=== PATIENT | male | born 1945 | race Caucasian/White ===

== ENCOUNTER → 2016-11-21 | Outpatient (CLI) | payer MEDICARE, BC, OTHER ==
[~2016-11-21] MED LIST: ASPI325T6 PO; BUMEX2 MG PO; CEPHALEXIN500 M1 PO; COLACE 100100 MG/CAP PO; COPPER2 MG PO; COUMADIN 1010 MG/TAB PO; COUMADIN4 MG PO; COUMADIN5 MG PO; ERY-TAB250 M1 PO; FISH OIL1000 MG PO; FOLIC ACID 40400 MCG PO; ICAPS LUTEIN &1 TAB PO; ICAPS MV1 TAB PO; INDERAL LA160 MG PO; IRON65 MG PO; KLONOPIN 1MG1 MG PO; LIPITOR 10MG10 MG PO; LYRICA 75MG CAP75 MG PO; MIRALAX PA17 GM/Dose PO; MYSOLINE 5050 MG/TAB PO; NATURAL E400 IU PO; NEURONTIN100 MG/CAP PO; PRADAXA 150MG150 MG PO; PROPRANOLOL ER80 MG PO; REGLAN 10MG10 MG/TAB PO; TOPAMAX 100MG100 M1 PO; TOPAMAX100 MG PO; TOPROL XL 25MG25 MG PO; TYLENOL 325MG325 MG PO; VITAMIN C500 MG PO; XARELTO STARTER20 MG PO; ZINC100 MG PO; [UNRECOGNIZED DRUG - OTHER] PO
== END ==
LOC: COL.RAD 07:36
DX: T85.8 Other specified complications of internal prosthetic devices, implants and grafts, not elsewhere classified (principal); Y83.8 Other surgical procedures as the cause of abnormal reaction of the patient, or of later complication, without mention of misadventure at the time of the procedure; I86.8 Varicose veins of other specified sites

== ENCOUNTER → 2016-12-06 | Outpatient (CLI) | payer MEDICARE, BC, OTHER | LOC: COL.RAD 08:16 | PROVIDERS: Family Medicine | DX: I82.221 Chronic embolism and thrombosis of inferior vena cava (principal); I74.5 Embolism and thrombosis of iliac artery; Z90.81 Acquired absence of spleen; I81 Portal vein thrombosis | CPT/HCPCS: Q9967 ==

== ENCOUNTER 2017-10-14 14:54 | Emergency (ER) | payer MEDICARE, BC, OTHER ==
[~2017-10-14] VITALS: Ht 182.9 cm; Wt 92.3 kg
[2017-10-14 14:59] VITALS: TEMP 98.1
[2017-10-14 15:23] LABS: BASO # 0.1 (0.0-0.2); BASO % 0.8 % (0.0-2.0); EOS # 0.4 (0.0-0.7); EOS % 5.7 % (0-4.0); GRAN # 2.1 (1.4-6.5); HEMATOCRIT 45.4 % (42.0-52.0); HEMOGLOBIN 15.6 g/dl (13.5-18.0); LYMPH % 45.9 % (20.0-51.0); MEAN CELL VOLUME 99 fl (80.0-100.0); MEAN CORPUSCULAR HEMOGLOBIN 34 pg (27.0-31.0); MEAN CORPUSCULAR HGB CONC 34 g/dl (33.0-37.0); MEAN PLATELET VOLUME 12.3 fl (7.4-10.4); MONO # 0.9 (0.1-0.6); MONO % 14.3 % (1.7-9.3); PLATELET COUNT 176 K/mm3 (130-400); REDCELL DISTRIBUTION WIDTH-CV 14.4 % (11.5-14.5)
[2017-10-14] MEDS ORDERED: ELIQUIS 5MG PO (15:23)
[2017-10-14] MEDS ORDERED: KLONOPIN 1MG1 MG PO (15:24)
[2017-10-14] MEDS ORDERED: LINZESS290CAP PO (15:24)
[2017-10-14] MEDS ORDERED: AMITRIPTYLINE H25 M1 PO (15:25)
[2017-10-14] MEDS ORDERED: MYSOLINE 5050 MG/TAB PO (15:25)
[2017-10-14] MEDS ORDERED: NEURONTIN100 MG/CAP PO (15:25)
[2017-10-14] MEDS ORDERED: BUMEX2 MG PO (15:26)
[2017-10-14] MEDS ORDERED: ICAPS TABLET1 EACH PO (15:26)
[2017-10-14] MEDS ORDERED: MIRALAX PA17 GM/Dose PO (15:27)
[2017-10-14] MEDS ORDERED: CEPHALEXIN500 M1 (15:28)
[2017-10-14 16:19] LABS: ALANINE AMINOTRANSFERASE 22 U/L (21-72); ALBUMIN 3.7 gm/dL (3.5-5.0); ALKALINE PHOSPHATASE 116 U/L (50-136); ANION GAP 8 mmol/L (7-16); AST,SGOT 22 U/L (15-37); BILIRUBIN,TOTAL 0.3 mg/dL (0.0-1.0); BLOOD UREA NITROGEN 18 mg/dL (9-20); CALCIUM 8.9 mg/dL (8.4-10.2); CARBON DIOXIDE 28 mmol/L (22-30); CHLORIDE 103 mmol/L (98-107); CREATININE, serum 1.05 mg/dL (0.66-1.25); GLUCOSE 92 mg/dL (74-106); POTASSIUM 3.7 mmol/L (3.4-5.0); SODIUM 139 mmol/L (137-145); TOTAL PROTEIN 7.1 gm/dL (6.4-8.2)
[2017-10-14 16:23] LABS: C-REACTIVE PROTEIN < 0.5 mg/dL (0.0-0.9)
[2017-10-14] MEDS ORDERED: FAMVIR 500500 MG/TAB PO (16:48)
[2017-10-14] MEDS ORDERED: PREDNISONE20 MG PO (16:48)
[2017-10-14 17:17] VITALS: BP 116/91; PULSE 72
== END 2017-10-14 17:18 | disposition home or self-care (01) ==
LOC: COL.ER 14:54
PROVIDERS: Emergency Medicine
DX: G51.0 Bell's palsy (principal); Z86.718 Personal history of other venous thrombosis and embolism
CPT/HCPCS: J7512

== ENCOUNTER 2020-11-27 20:24 | Emergency (ER) | payer MEDICARE, BC, OTHER ==
[~2020-11-27] VITALS: Ht 182.9 cm; Wt 92.7 kg
[~2020-11-27 20:24] MED LIST changes: +AMITRIPTYLINE H25 M1 PO; +CEPHALEXIN500 M1; +ELIQUIS 5MG PO; +FAMVIR 500500 MG/TAB PO; +ICAPS TABLET1 EACH PO; +LINZESS290CAP PO; +PREDNISONE20 MG PO
[2020-11-27 20:29] VITALS: TEMP 97.7
[2020-11-27 21:50] VITALS: BP 118/65; PULSE 65
== END 2020-11-27 21:50 | disposition home or self-care (01) ==
LOC: COL.ER 20:24
DX: R04.0 Epistaxis (principal); Z79.01 Long term (current) use of anticoagulants; Z86.718 Personal history of other venous thrombosis and embolism; Z88.8 Allergy status to other drugs, medicaments and biological substances; Z87.891 Personal history of nicotine dependence; Z79.52 Long term (current) use of systemic steroids

== ENCOUNTER 2021-06-08 14:00 | Emergency (ER) | payer MEDICARE, BC, OTHER ==
[~2021-06-08] VITALS: Ht 182.9 cm; Wt 90.9 kg
[2021-06-08 14:16] VITALS: TEMP 97.6
[2021-06-08 18:46] LABS: BASO % 0.3 % (0.0-2.0); EOS % 0.3 % (0-4.0); GRAN # 3.6 (1.4-6.5); HEMOGLOBIN 16.6 g/dl (13.5-18.0); LYMPH # 1.9 (1.2-3.4); LYMPH % 30.6 % (20.0-51.0); MEAN CELL VOLUME 100 fl (80.0-100.0); MEAN CORPUSCULAR HEMOGLOBIN 35 pg (27.0-31.0); MEAN CORPUSCULAR HGB CONC 35 g/dl (33.0-37.0); MONO # 0.6 (0.1-0.6); MONO % 9.6 % (1.7-9.3); PLATELET COUNT 221 K/mm3 (130-400); REDCELL DISTRIBUTION WIDTH-CV 14.5 % (11.5-14.5)
[2021-06-08 18:58] LABS: ALANINE AMINOTRANSFERASE 19 U/L (4-49); ALBUMIN 4.5 gm/dL (3.5-5.0); ALKALINE PHOSPHATASE 142 U/L (50-136); ANION GAP 9 mmol/L (7-16); AST,SGOT 25 U/L (15-37); BILIRUBIN,TOTAL 0.3 mg/dL (0.0-1.0); BLOOD UREA NITROGEN 16 mg/dL (9-20); CALCIUM 9.7 mg/dL (8.4-10.2); CARBON DIOXIDE 27 mmol/L (22-30); CHLORIDE 104 mmol/L (98-107); CREATININE, serum 0.98 (0.66-1.25); GLUCOSE 107 mg/dL (74-106); LIPASE 119 U/L (23-300); POTASSIUM 3.7 mmol/L (3.4-5.0); SODIUM 141 mmol/L (137-145); TOTAL PROTEIN 8.2 gm/dL (6.4-8.2)
[2021-06-08 19:03] LABS: C-REACTIVE PROTEIN < 0.5 mg/dL (0.0-0.9)
[2021-06-08 19:18] LABS: COLLECTION METHOD CLEAN CATCH
[2021-06-08 19:30] LABS: PH 5 (5-8); SQUAMOUS EPITHELIAL 0-2 /hpf; URINE APPEARANCE Clear; URINE BACTERIA None Seen /hpf; URINE BILIRUBIN Negative (NEGATIVE); URINE BLOOD Negative (NEGATIVE); URINE COLOR Straw; URINE GLUCOSE Negative (NEGATIVE); URINE KETONE Negative (NEGATIVE); URINE LEUKOCYTE ESTERASE Negative (NEGATIVE); URINE NITRATE Negative (NEGATIVE); URINE PROTEIN(semi-quant) Negative (NEGATIVE); URINE RBC 0-2 /hpf; URINE UROBILINOGEN Negative (NEGATIVE)
[2021-06-08 20:53] VITALS: BP 136/74; PULSE 56
== END 2021-06-08 20:53 | disposition home or self-care (01) ==
LOC: COL.ER 14:00
PROVIDERS: Nurse Practitioner Primary Care
DX: R10.84 Generalized abdominal pain (principal); Z87.442 Personal history of urinary calculi; Z90.49 Acquired absence of other specified parts of digestive tract; Z90.81 Acquired absence of spleen
CPT/HCPCS: J1885; J2405; J7030

== ENCOUNTER → 2022-03-29 | Outpatient (CLI) | payer MEDICARE, BC, OTHER | LOC: COL.VAS 10:24 | DX: I82.513 Chronic embolism and thrombosis of femoral vein, bilateral (principal); I82.523 Chronic embolism and thrombosis of iliac vein, bilateral; I87.2 Venous insufficiency (chronic) (peripheral) ==

== ENCOUNTER → 2022-04-07 | Outpatient (CLI) | payer MEDICARE, BC, OTHER | LOC: COL.RAD 07:07 | DX: I86.8 Varicose veins of other specified sites (principal); R60.0 Localized edema; Z86.718 Personal history of other venous thrombosis and embolism ==

== ENCOUNTER → 2023-01-02 | Outpatient (CLI) | payer MEDICARE, BC, OTHER ==
--- NOTE | 2022-12-28 12:54 | NUR ---
LMOM WITH INSTRUCTIONS AND CALL BACK NUMBER.
[~2023-01-02] VITALS: Ht 182.9 cm; Wt 93.0 kg
[~2023-01-02] MED LIST changes: +FLOMAX 0.40.4 MG/CAP PO; +PROSCAR 5MG5 MG PO; +TOPAMAX50 MG PO
[2023-01-02 11:25] VITALS: BP 137/77; PULSE 68; TEMP 97.8
[2023-01-02 13:05] VITALS: BP 130/70; PULSE 63
== END ==
LOC: COL.RAD 10:12
DX: M50.30 Other cervical disc degeneration, unspecified cervical region (principal); M48.02 Spinal stenosis, cervical region
CPT/HCPCS: J1100